=== PATIENT | female | born 1975 | race Two or more races ===

== ENCOUNTER 2019-05-22 11:57 | Emergency (ER) | payer BC, OTHER ==
[2019-05-22 12:12] VITALS: BP 111/91
--- NOTE | 2019-05-22 12:40 | UC ---
Skin Complaint HPI - HPI Summary HPI Summary: 44 YO FEMALE WITH PAINFUL BLISTERS UPPER /LOWER LIPS AND PAINFUL RED AREA HARD PALATE PAIN X 5 DAYS RASH ABOUT THE SAME - History of Current Complaint Chief Complaint: UCSkin Time Seen by Provider: 05/22/19 12:09 Stated Complaint: COLD SORE ON LIPS Hx Obtained From: Patient Hx Last Menstrual Period: 05/22/19 Onset/Duration: Gradual Onset, Lasting Weeks Skin Exposure Onset/Duration: Days Ago Timing: Constant Onset Severity: Mild Current Severity: Mild Pain Intensity: 4 Pain Scale Used: 0-10 Numeric Location: Other - SEE IMAGE Character: Pain, Redness, Raised Aggravating Factor(s): Touch Alleviating Factor(s): Nothing Associated Signs & Symptoms: Positive: Rash - Allergy/Home Medications Allergies/Adverse Reactions: Allergies Allergy/AdvReac Type Severity Reaction Status Date / Time No Known Allergies Allergy Verified 05/22/19 12:13 Home Medications: Home Medications Carmex Lip Altair 1 applic TOPICAL DAILY 05/22/19 [History Confirmed 05/22/19] raNITIdine HCl [Zantac] 75 mg PO DAILY 05/22/19 [History Confirmed 05/22/19] PMH/Surg Hx/FS Hx/Imm Hx Previously Healthy: Yes - Surgical History Surgical History: None - Family History Known Family History: Positive: Hypertension, Non-Contributory - Social History Alcohol Use: Weekly Substance Use Type: None Smoking Status (MU): Never Smoked Tobacco Review of Systems All Other Systems Reviewed And Are Negative: Yes Constitutional: Positive: Negative Skin: Positive: Rash Eyes: Positive: Negative ENT: Positive: Negative Respiratory: Positive: Negative Cardiovascular: Positive: Negative Gastrointestinal: Positive: Negative Genitourinary: Positive: Negative Motor: Positive: Negative Neurovascular: Positive: Negative Musculoskeletal: Positive: Negative Neurological: Positive: Negative Psychological: Positive: Negative Physical Exam Triage Information Reviewed: Yes Appearance: Well-Appearing, No Pain Distress, Well-Nourished Vital Signs: Initial Vital Signs Temp 98.9 F 05/22/19 12:08 Pulse 79 05/22/19 12:08 Resp 18 05/22/19 12:08 BP 111/91 05/22/19 12:08 Pulse Ox 100 05/22/19 12:08 Vital Signs Reviewed: Yes Eyes: Positive: Conjunctiva Clear ENT: Positive: Hearing grossly normal, Uvula midline. Negative: Nasal congestion, Nasal drainage, Tonsillar swelling, Trismus, Muffled voice, Hoarse voice Dental Exam: Normal Neck: Positive: Supple, Nontender Respiratory: Positive: Lungs clear, Normal breath sounds, No respiratory distress, No accessory muscle use Cardiovascular: Positive: RRR, No Murmur Musculoskeletal: Positive: Strength Intact, ROM Intact, No Edema Neurological: Positive: Alert Psychological Exam: Normal Skin Exam: Other - SEE IMAGE Images Dental: 1 - CLUSTER OF VESICLES 2 - CLUSTER OF VESICLES 3 - RED AREA HARD PALATE Course/Dx - Course Course Of Treatment: SHE HAS NEVER HAD COLD SORES THIS MAY BE SHINGLES DUE TO POSSIBLE LESION HARD PALATE - Differential Diagnoses - Skin Complaint Differential Diagnoses: Varicella Zoster - ??? - Diagnoses Provider Diagnosis: Cold sore Discharge ED - Sign-Out/Discharge Documenting (check all that apply): Patient Departure All imaging exams completed and their final reports reviewed: No Studies - Discharge Plan Condition: Stable Disposition: HOME Prescriptions: Famciclovir(NF) [Famvir(NF)] 500 mg PO TID #21 tab Patient Education Materials: Oral Herpes Simplex Virus Infections (ED) Referrals: Sheryl Menjivar MD [Primary Care Provider] - 4 Days (IF NOT IMPROVED ) Additional Instructions: VIRAL TESTS PENDING THIS MAY BE AN ATYPICAL SHINGLES PRESENTATION OR COULD BE CAUSED BY THE TYPICAL COLD SORE VIRUS - Billing Disposition and Condition Condition: STABLE Disposition: Home
--- NOTE | 2019-05-25 07:18 | UC ---
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 Nursing to call patient and inform the patient of results. Course/Dx - Diagnoses Provider Diagnoses: Cold sore Discharge ED - Sign-Out/Discharge Documenting (check all that apply): Patient Departure All imaging exams completed and their final reports reviewed: No Studies - Discharge Plan Condition: Stable Disposition: HOME Prescriptions: Famciclovir(NF) [Famvir(NF)] 500 mg PO TID #21 tab Patient Education Materials: Oral Herpes Simplex Virus Infections (ED) Referrals: Sheryl Menjivar MD [Primary Care Provider] - 4 Days (IF NOT IMPROVED ) Additional Instructions: VIRAL TESTS PENDING THIS MAY BE AN ATYPICAL SHINGLES PRESENTATION OR COULD BE CAUSED BY THE TYPICAL COLD SORE VIRUS - Billing Disposition and Condition Condition: STABLE Disposition: Home
[2019-05-25 16:36] LABS: Varicella Zoster Result Negative (Negative)
== END 2019-05-22 12:52 | disposition home or self-care (01) ==
LOC: UCEAST 11:57
DX: B02.9 Zoster without complications (principal)
CPT/HCPCS: 87529; 87798; 99202; G0463